=== PATIENT | male | born 1995 | race Hispanic/Latino ===

== ENCOUNTER 2018-10-15 14:34 | Inpatient (IN) | payer OTHER ==
[~2018-10-15 14:34] MED LIST: ISOVUE-370 76%-LOCM 1 ML ONE; Iopamidol 370 76% 50 ML VIAL FS ONE
[2018-10-15 14:52] LABS: #Basophils 0.1 thou/uL (0.0-0.2); #Eosinphils 0.1 thou/uL (0.0-0.7); #Lymphocytes 3.1 thou/uL (1.20-3.40); #Monocytes 0.7 thou/uL (0.11-0.59); #Neutrophils 5.1 thou/uL (1.40-6.50); %Basophils 0.6 % (0.0-1.0); %Eosinophils 0.9 % (0.0-10.0); %Lymphocytes 34.8 % (21.0-51.0); %Monocytes 7.4 % (0.0-10.0); %Neutrophils 56.3 % (42.0-75.0); Hemoglobin 14.2 g/dL (14.0-18.0); Mean Corpuscular HGB CONC 33.7 g/dL (32.0-36.0); Mean Corpuscular Hemoglobin 30.3 pg (27.0-31.0); Mean Corpuscular Volume 89.8 fL (78.0-98.0); Platelet Count 247 thou/uL (130-400); RBC Distribution Width 11.6 % (11.5-14.5)
--- NOTE | 2018-10-15 14:52 | RAD ---
CHEST ONE VIEW: History: Chest pain. FINDINGS: No comparison. Cardiac silhouette and pulmonary vasculature are unremarkable. Mediastinum is midline. Shallow inspir ation accentuates pulmonary markings. There is significant soft tissue gas along the left lateral [address] st wall. No free subdiaphragmatic gas is apparent. No evidence of pneumothorax on this portable uprig ht exam. IMPRESSION: Left chest wall gas. No evidence of pneumothorax. POS: [facility]
[2018-10-15] MEDS ORDERED: Morphine 4 MG/ML VIAL ONE ×2 (14:57→17:10)
[2018-10-15 14:59] LABS: INR-International Normal Ratio 0.9; PTT 23.5 SEC (22.9-36.1); Prothrombin Time 12.2 SEC (12.0-14.7)
[2018-10-15 15:10] LABS: Anion Gap 14 mmol/L (10-20); BUN (Urea Nitrogen) 15 mg/dL (8.9-20.6); Calc. Creatinine Clearance 0 mL/min (70-130); Calcium 9.5 mg/dL (7.8-10.44); Carbon Dioxide 23 mmol/L (22-29); Chloride 104 mmol/L (98-107); Estimated GFR-MDRD 89; Glucose 129 mg/dL (70-105); Potassium 3.7 mmol/L (3.5-5.1); Sodium 137 mmol/L (136-145)
[2018-10-15] MEDS ORDERED: Ondansetron PF 4 MG/2 ML Vial ONE ×2 (15:13→16:21)
--- NOTE | 2018-10-15 15:17 | CT ---
CT THORAX WITH CONTRAST CT ABDOMEN WITH CONTRAST CT PELVIS WITH CONTRAST: (trauma protocol) DATE: 10/15/18 TIME: 1447 hours HISTORY: 23-year-old male status post blunt trauma to chest and abdomen. Dr. Avila reported the finding of Grade V splenic laceration with active arterial bleeding, and pneumot horax, by telephone to Dr. Van of the emergency department at 1456 hours on 10/15/18. TECHNIQUE: IV administration of iodinated contrast media. No oral contrast media. Single phase scans of thorax, abdomen, and pelvis. Sagittal reconstructions of thoracic and lumbar spine. FINDINGS: Thoracic and lumbar spine: Vertebral body heights are maintained with no evidence of compression fracture. Thorax: There is an approximately 15% left pneumothorax. No pleural effusion. Lungs are clear. Rib fractures on the left: Minimally displaced lateral 7th. Mildly displaced lateral and posterolateral 8th and 9t h. Minimally displaced posterolateral 10th. Subcutaneous emphysema along left lateral and left accounting reconciliation clerk ior chest wall. Thoracic aorta is intact. No mediastinal hematoma or pericardial effusion. Abdomen: The spleen is shattered into multiple fragments. There are multiple foci of significant contrast extr avasation representing active arterial bleeding. Moderate to large perisplenic hematoma with blood tr aveling down the left paracolic gutter. There is also a small amount of free fluid around the right lobe of the liver, which also travels meche n the right paracolic gutter. Abdominal aorta, kidneys, pancreas, liver, and adrenals are intact. No retroperitoneal hematoma. No pneumoperitoneum. Pelvis: Moderate volume of free fluid representing blood within the pelvic cavity. No pelvic fracture or disl ocation. IMPRESSION: 1. Grade V splenic laceration, including active arterial hemorrhaging. 2. Moderate volume of hemoperitoneum. 3. Left acute, traumatic pneumothorax. 4. Multiple mildly displaced left acute, traumatic rib fractures. CODE CR. JN R POS: [facility]
[2018-10-15] MEDS ORDERED: Tranexamic Acid 1,000 MG/10 ML VIAL ONE (15:32)
--- NOTE | 2018-10-15 16:51 | HP ---
HISTORY OF PRESENT ILLNESS: This is a 23-year-old gentleman, brought in by EMS , who sustained blunt trauma to his left chest. EMS reports that the patient was standing approximately 20 feet away when workers were attempting to remove a truck that was stuck. They were using a large piece of pipe, which ended up breaking, becoming dislodged under high pressure, flying in the air, and hitting the patient in the left chest. The patient with no loss of consciousness. EMS reported the patient had difficulty taking a deep breath and decreased breath sounds on the left side. The patient was initially a level I trauma activation due to possible flail chest, but then was downgraded to a level II. The patient was worked up in the emergency room. A FAST exam was performed with possible spleen injury. CT chest, abdomen, and pelvis shows a small left pneumo, grade 4 spleen injury and left multiple fractured ribs. PAST MEDICAL HISTORY: The patient denies. PAST SURGICAL HISTORY: The patient denies. MEDICATIONS: The patient denies. ALLERGIES: THE PATIENT DENIES. PHYSICAL EXAMINATION: VITAL SIGNS: Blood pressure 123/85, pulse 117, respirations 21, temperature 98.2, respirations 100% on a non-rebreather. GENERAL: The patient is awake, alert. Nausea and vomiting from the recent morphine. Tachycardic with vomiting. HEENT: Head is normocephalic and atraumatic. Trachea is midline. Pupils are equal and reactive at 3 mm bilateral. NECK: Without tenderness. Full range of motion. RESPIRATORY: Shallow respirations and slightly tachypneic. Slightly diminished breath sounds to the left. CARDIOVASCULAR: Tenderness to the left lateral chest, no crepitus. Abrasion noted to the left chest wall. Regular rate, tachycardic. Heart sounds are normal. S1 and S2 noted. No murmurs. Pedal pulses normal, 2+. ABDOMEN: Tender in the left upper quadrant, nondistended. Active bowel sounds. No blood at the meatus. Normal genitalia. BACK: Normal inspection, no tenderness, no step-off. EXTREMITIES: Normal range of motion and strength to all extremities. Pulses 2+ . They were no obvious injuries or deformities to the extremities. NEUROLOGIC: The patient is alert, oriented to person, place, time, and event. GCS is 15. Cranial nerves intact, no focal deficits, no sensory deficits. SKIN: Again noted abrasion to the left lateral chest. Skin, warm and dry. LABORATORY DATA: WBC 9.0, RBC 4.70, hemoglobin 14.2, hematocrit 42.2, platelets 247. PT 12.2, INR 0.9, APTT 23.5. Sodium 137, potassium 3.7, chloride 104, carbon dioxide 23, anion gap 14, BUN 15, creatinine 1.03, estimated GFR 89, glucose 129 , calcium 9.5. DIAGNOSTIC DATA: Chest x-ray, left chest wall gas. CT abdomen, pelvis, and chest grade 4 spleen laceration including active arterial hemorrhaging, moderate volume of hemoperitoneum, left acute traumatic small pneumothorax, multiple mildly displaced left acute traumatic rib fractures. PLAN: Cardiothoracic Surgery consulted, planned for Dr. Alfaro and Jude to go to the engineering laboratory technician for an angioembolization if not able to stop the bleeding will take to the OR. We will admit patient to the CCU for close monitoring and serial blood draws. We will continue to monitor of the left small pneumothorax, repeat a chest x-ray in the morning. Repeat labs in the morning. We will activate the MTP protocol if needed. Manage pain with IV meds and pt may have sips of water only tonight. This patient was examined with Dr. Roque. Job ID: [id number] [facility]
[2018-10-15] MEDS ORDERED: Dextrose 50% Abboject 50 ML SYRINGE SLOW IVP PRN (17:44)
[2018-10-15] MEDS ORDERED: Rib Fracture Protocol IV SCH (17:44)
[2018-10-15] MEDS ORDERED: Dextrose 5% in Water 1,000 ML IV PRN (17:44)
[2018-10-15] MEDS ORDERED: hydrALAZINE 20 MG/ML VIAL SLOW IVP PRN (17:44)
[2018-10-15] MEDS ORDERED: Morphine 4 MG/ML VIAL SLOW IVP PRN ×2 (17:44)
[2018-10-15] MEDS ORDERED: Fentanyl 100 MCG/2 ML VIAL ONE (18:09)
[2018-10-15] MEDS ORDERED: Fentanyl 100 MCG/2 ML VIAL SLOW IVP PRN (18:11)
[2018-10-15 18:51] VITALS: BMI 28.0
[2018-10-15 18:58] LABS: Hemoglobin 11.6 g/dL (14.0-18.0)
[2018-10-15] MEDS: Ondansetron PF 4 MG/2 ML Vial IVP PRN (19:02)
[2018-10-15] MEDS ORDERED: HYDROmorphone 10 mg/100 ml CADD IVPB PRN (19:19)
[2018-10-15] MEDS ORDERED: diphenhydrAMINE 50 MG/ML VIAL IVP PRN (19:19)
[2018-10-15] MEDS ORDERED: Promethazine HCl 25 MG/ML VIAL IM PRN (19:19)
[2018-10-15] MEDS ORDERED: diphenhydrAMINE 50 MG/ML VIAL IM PRN (19:19)
[2018-10-15] MEDS ORDERED: Naloxone HCl 0.4 mg/ml Vial IV PRN (19:19)
[2018-10-15] MEDS ORDERED: diphenhydrAMINE 25 MG CAP PO PRN (19:19)
[2018-10-15] MEDS ORDERED: Communication Order-Pharmacy FS SCH (19:30)
--- NOTE | 2018-10-15 20:21 | PRG ---
DATE OF SERVICE: 10/15/2018 SUBJECTIVE: I am seeing Mr. Morocho 23-year-old man who suffered blunt chest and abdominal trauma earlier today sustaining multiple rib fractures as well as a grade 4 splenic laceration with active bleeding. The patient is status post angioembolization. He remains stable in intensive care unit. Pain control is improving. He is awake and alert. His pain currently is reported at 8/10. The pain is mostly chest wall. The patient denies any abdominal pain, nausea, or vomiting. OBJECTIVE: VITAL SIGNS: Currently include blood pressure 134/81, pulse is 116, respiratory rate is 25, temperature is 98.7 degrees Fahrenheit, and oxygen saturation is 95% on room air. HEENT: Pupils are equal, round, reactive to light and accommodation. HEART: Reveals regular rate with sinus tachycardia. No murmurs or gallops auscultated. LUNGS: Clear to auscultation bilaterally. ABDOMEN: Soft, moderately distended, but nontender to palpation. Clearly, the patient has no peritoneal signs on examination. NEUROLOGIC: Reveals no focal deficits present. LABORATORY DATA: Hemoglobin and hematocrit noted at 11.6 and 34.3. This is post angioembolization. Urinary output is adequate. IMPRESSION: 1. Status post blunt chest and abdominal trauma. 2. Grade 4 splenic laceration, status post angioembolization. 3. Acute blood loss anemia. 4. Multiple rib fractures. PLAN: 1. We will initiate Dilaudid AIRLINE PILOT for better pain control. 2. We will continue with nonpharmacological VTE prophylaxis until the patient achieves adequate hemostasis. 3. We will continue with bowel and bed rest until active bleeding has been excluded. The above findings and plan discussed with the patient, who indicates understanding of information given. Job ID: [id number]
[2018-10-15] MEDS: Famotidine/PF 20 mg/2ml Vial SLOW IVP SCH (20:44)
[2018-10-15] MEDS: Senokot S 8.6-50 MG TAB PO SCH (20:47)
[2018-10-15] MEDS: Sodium Chloride 0.9% 1,000 ML IV SCH ×2 (21:50→23:28)
[2018-10-15 21:56] LABS: Hemoglobin 11.8 g/dL (14.0-18.0)
[2018-10-15] MEDS ORDERED: Ketorolac Tromethamine 30 MG/ML VIAL IVP SCH (23:59)
[2018-10-15] MEDS ORDERED: Acetaminophen 650 MG Suppository PR SCH (23:59)
[2018-10-16] MEDS: Acetaminophen 1,000 MG in Premix Bag 1 BAG IVPB SCH ×5 (00:22→23:26)
[2018-10-16] MEDS: Ondansetron PF 4 MG/2 ML Vial IVP PRN ×2 (04:23→09:27)
[2018-10-16 04:43] LABS: #Monocytes 1.1 thou/uL (0.11-0.59); #Neutrophils 13.7 thou/uL (1.40-6.50); %Basophils 0.1 % (0.0-1.0); %Lymphocytes 6.4 % (21.0-51.0); %Monocytes 7.2 % (0.0-10.0); %Neutrophils 86.3 % (42.0-75.0); Hemoglobin 10.4 g/dL (14.0-18.0); Mean Corpuscular HGB CONC 34.1 g/dL (32.0-36.0); Mean Corpuscular Hemoglobin 31.1 pg (27.0-31.0); Mean Corpuscular Volume 91.1 fL (78.0-98.0); Mean Platelet Volume 8.1 fL (7.4-10.4); Platelet Count 191 thou/uL (130-400); RBC Distribution Width 11.8 % (11.5-14.5); Red Blood Cell (RBC) Count 3.35 mill/uL (4.70-6.10); White Blood Cell (WBC) Count 15.8 thou/uL (4.8-10.8)
[2018-10-16 05:06] LABS: ALT (SGPT) 94 U/L (8-55); AST (SGOT) 59 U/L (5-34); Albumin 3.6 g/dL (3.5-5.0); Alkaline Phosphatase 51 U/L (40-150); Anion Gap 14 mmol/L (10-20); BUN (Urea Nitrogen) 13 mg/dL (8.9-20.6); Calc. Creatinine Clearance 129 mL/min (70-130); Calcium 8.3 mg/dL (7.8-10.44); Carbon Dioxide 24 mmol/L (22-29); Chloride 103 mmol/L (98-107); Estimated GFR-MDRD Greater than 90; Globulin 2.3 g/dL (2.4-3.5); Glucose 125 mg/dL (70-105); Magnesium 1.5 mg/dL (1.6-2.6); Potassium 4.2 mmol/L (3.5-5.1); Protein, Total 5.9 g/dL (6.0-8.3); Sodium 137 mmol/L (136-145)
[2018-10-16] MEDS ORDERED: Magnesium Sulfate 2 GM in Sodium Chloride 0.9% 100 ML IVPB SCH (07:45)
[2018-10-16] MEDS: Polyethylene Glycol 3350 17 GM Packet PO SCH (07:54)
[2018-10-16] MEDS: Senokot S 8.6-50 MG TAB PO SCH ×2 (07:55→20:45)
[2018-10-16] MEDS: Famotidine/PF 20 mg/2ml Vial SLOW IVP SCH ×2 (08:00→20:45)
[2018-10-16] MEDS: Sodium Chloride 0.9% 1,000 ML IV SCH ×3 (08:08→19:39)
[2018-10-16] MEDS ORDERED: Magnesium 2 GM/50 ML 2 GM in Premix Bag 1 BAG IVPB SCH (08:15)
--- NOTE | 2018-10-16 08:17 | OP ---
DATE OF PROCEDURE: 10/15/2018 PREOPERATIVE DIAGNOSIS: Ruptured spleen. POSTOPERATIVE DIAGNOSIS: Ruptured spleen. PROCEDURE PERFORMED: Splenic arteriograms with coil embolization of the lower pole splenic arteries using 4 x 8 interlock coils x2 and 3 x 6 interlock coils x2. FLUOROSCOPY: 10.1 minutes. CONTRAST: 20 mL. DESCRIPTION OF PROCEDURE: After prepping and draping, 1% lidocaine was used to infiltrate the right groin following which, ultrasound-guided puncture of the femoral artery was carried out. Wire advanced. A 5-Japanese dilator and sheath were placed. A [employer] wire was used to advance an angled glide catheter up to the abdominal aorta and initially the superior mesenteric artery was cannulated and then withdrawn from there and splenic artery cannulated with the wire preferentially going into the hepatic artery. This wire was then exchanged for an angled Glidewire which then preferentially went into the splenic artery. Over this wire, the angled glide catheter was advanced into the mid splenic artery. A direct C-arm catheter was then advanced through this glide catheter and with a long Luge wire was directed into the lower pole splenic vessels which consisted of a bifurcation. The upper bifurcation was coiled with the 3 x 6 coils and then occluded and then the lower pole was cannulated and coiled with a 4 x 8 coils. Following completion angiography, there was no flow through these branches and no further evidence of bleeding. FINDINGS: The patient had injury to one of the branches to the lower pole splenic artery with a cutoff sign. No obvious extravasation was identified during the procedure. Job ID: [id number]
--- NOTE | 2018-10-16 08:21 | ER ---
DATE OF SERVICE: 10/15/2018 ADDENDUM: Please refer to the patient's electronic medical record for further details of his visit. In summary, the patient presented via EMS with report of traumatic chest wall injury, requiring intubation. Because of this, a level 1 trauma activation was initiated. However, upon the time of the patient's arrival, it was warranted he had not been intubated, was not significantly hypoxic, and the patient was quickly downgraded. Primary assessment revealed an intact airway, bilateral breath sounds, and peripheral pulses present in all extremities. The patient was awake, alert, and talking. He was aware of his surroundings and oriented normally. GCS is 15. Secondary survey revealed tenderness over the left chest wall with [id number] respiratory distress. His O2 saturation was not truly hypoxic, though on the low side of normal, in the low 90s. He was given supplemental oxygen via nasal cannula with some improvement to the mid 90s. His heart rate was initially normal, though it was noted to increase throughout the duration of his visit. Initial bedside ultrasound was positive for intra-abdominal fluid. Because he was hemodynamically stable, imaging was obtained, which revealed a high-grade splenic injury with active arterial extravasation consistent with ongoing intra-abdominal hemorrhage. Because of this, with the patient's increasing heart rate, massive transfusion protocol was initiated, though the patient does not require blood product administration while in the emergency department. He also was noted to have a small left-sided pneumothorax, which did not require chest tube placement. This would obviously require monitoring while in the hospital. He was given tranexamic acid due to concern for his ongoing bleeding. The trauma team was at the bedside on arrival, and associated with the management of this patient throughout his stay. He was transferred to the mill labor supervisor for embolization versus operative repair of his splenic injury. At that time, the patient remained stable, but guarded condition. Job ID: [id number]
--- NOTE | 2018-10-16 08:25 | RAD ---
SINGLE VIEW OF THE CHEST: COMPARISON: 10/15/2018. HISTORY: Small left pneumothorax. FINDINGS: A single view of the chest shows a normal-size cardiomediastinal silhouette. There is no evidence of consolidation, mass, pneumothorax, or pleural effusion. There is improvement in the air along the l eft chest wall. IMPRESSION: No evidence of acute cardiopulmonary disease. POS: [facility]
[2018-10-16] MEDS ORDERED: Fentanyl 100 MCG/2 ML VIAL SLOW IVP PRN ×2 (09:06)
[2018-10-16] MEDS: Scopolamine 1.5 mg/72 hour Patch TOP SCH (09:26)
[2018-10-16] MEDS ORDERED: Metoclopramide HCl 10 MG/2 ML VIAL IVP SCH (10:15)
[2018-10-16] MEDS ORDERED: fentaNYL Citrate/PF 2,000 MCG in Sodium Chloride 0.9% 60 ML IV PRN (10:21)
[2018-10-16] MEDS ORDERED: diphenhydrAMINE 50 MG/ML VIAL IVP PRN (10:21)
[2018-10-16] MEDS ORDERED: diphenhydrAMINE 50 MG/ML VIAL IM PRN (10:21)
[2018-10-16] MEDS ORDERED: diphenhydrAMINE 25 MG CAP PO PRN (10:21)
[2018-10-16] MEDS ORDERED: Communication Order-Pharmacy FS SCH (10:30)
--- NOTE | 2018-10-16 12:36 | PQF ---
CLINICAL DOCUMENTATION IMPROVEMENT CLARIFICATION FORM: ICD-10 Updated PLEASE DO AN ADDENDUM TO THE PROGRESS NOTE WITH ANY DOCUMENTATION UPDATES OR ADDITIONS AND CARRY THROUGH TO DC SUMMARY. THANK YOU. DATE: 10/16/18 ATTN: DR. GRIER Please exercise your independent, professional judgment in responding to the clarification form. Clinical indicators are provided on the bottom of this form for your review Please check appropriate box(s) to clarify if the following diagnosis has been ruled in or ruled out: "FLAIL CHEST" [ ] Ruled in diagnosis [ ] Continue to treat [ ] Resolved [ X ] Ruled out diagnosis [ ] Cannot rule out diagnosis [ ] Other diagnosis [ ] Unable to determine In addition, please specify: Present on Admission (POA): [ ] Yes [X ] No [ ] Unable to determine This was a miscommunication from the EMS report. Pt never had a flail chest but that was the only reason a level one was activated. When the patient arrived and there was no flair chest the ER downgraded to level 2. For continuity of documentation, please document condition throughout progress notes and discharge summary. Thank You. CLINICAL INDICATORS - SIGNS / SYMPTOMS / LABS H&P: "POSSIBLE FLAIL CHEST " RR 32, SHALLOW HR 117 H&P: "THE PATIENT WAS INITIALLY A LEVEL I TRAUMA ACTIVATION DUE TO POSSIBLE LEFT FLAIL CHEST, BUT THEN WAS DOWNGRADED TO A LEVEL II." RISKS: BLUNT TRAUMA TO CHEST LEFT PNEUMOTHORAX RUPTURED SPLEEN TREATMENT: SUPPLEMENTAL OXYGEN CRITICAL CARE MONITORING CHEST XRAY TRAUMA ACTIVATION CV SURGERY CONSULT WITH COIL EMBOLIZATION OF SPLENIC ARTERIES SAP Mortgage Operations Manager Crystal Reports Winform Viewer (This form is maintained as a part of the permanent medical record) 2014 [employer]. All Rights Reserved CHUCK [email or web address] Office: [phone] [facility]ITAL[facility]
[2018-10-16] MEDS: Metoclopramide HCl 10 MG/2 ML VIAL IVP SCH ×2 (13:54→18:29)
[2018-10-16 16:28] LABS: Hemoglobin 9.4 g/dL (14.0-18.0)
[2018-10-17] MEDS: Metoclopramide HCl 10 MG/2 ML VIAL IVP SCH ×4 (01:43→18:45)
[2018-10-17 04:59] LABS: Hemoglobin 9.2 g/dL (14.0-18.0)
[2018-10-17] MEDS ORDERED: Acetaminophen 650 MG Suppository PR SCH (06:00)
[2018-10-17] MEDS: Acetaminophen 325 MG TAB PO SCH ×3 (06:19→17:39)
[2018-10-17] MEDS: Polyethylene Glycol 3350 17 GM Packet PO SCH (08:22)
[2018-10-17] MEDS: Senokot S 8.6-50 MG TAB PO SCH ×3 (08:22→23:30)
[2018-10-17] MEDS: Famotidine/PF 20 mg/2ml Vial SLOW IVP SCH ×2 (08:24→21:28)
[2018-10-17] MEDS: Sodium Chloride 0.9% 1,000 ML IV SCH (08:34)
--- NOTE | 2018-10-17 08:45 | RAD ---
PORTABLE CHEST: DATE: 10/17/2018. PROVIDED CLINICAL HISTORY: Pneumothorax. FINDINGS: Comparison is made with a study dated 10/16/2018. The lungs are hypoinflated. Development of left bas ilar parenchymal opacity. A tiny left pneumothorax may be present. The right lung appears clear. S oft tissue gas is seen involving the left lower chest wall. IMPRESSION: 1. Development of left basilar parenchymal opacity, which could reflect atelectasis or infiltrate. 2. Tiny left pneumothorax is suspected. POS: [facility]
[2018-10-17 09:48] LABS: Anion Gap 11 mmol/L (10-20); BUN (Urea Nitrogen) 7 mg/dL (8.9-20.6); Calc. Creatinine Clearance 153 mL/min (70-130); Calcium 8.9 mg/dL (7.8-10.44); Carbon Dioxide 24 mmol/L (22-29); Chloride 103 mmol/L (98-107); Estimated GFR-MDRD Greater than 90; Glucose 112 mg/dL (70-105); Magnesium 1.7 mg/dL (1.6-2.6); Phosphorus 2.4 mg/dL (2.3-4.7); Sodium 134 mmol/L (136-145)
[2018-10-17] MEDS ORDERED: Magnesium Sulfate 3 GM in Sodium Chloride 0.9% 100 ML IVPB SCH (15:00)
[2018-10-17] MEDS: Levalbuterol HCl 0.63 MG/3 ML NEB NEB SCH ×2 (15:05→22:01)
--- NOTE | 2018-10-17 15:23 | PRG ---
DATE OF SERVICE: 10/17/2018 SUBJECTIVE: The patient was seen this morning, sitting up in bed. The patient remained in the ICU overnight with trending hemoglobin and close vital signs monitoring. He is status post blunt trauma to the left chest with grade 4 splenic injury, left-sided rib fractures and a small left-sided pneumothorax. He had no acute overnight events. However, his hemoglobin did trend down to 9.2 this morning from 9.4 from 10.4. The patient continues to be mildly tachycardic, but denies any other additional symptoms. He is urinating on his own and denies nausea, vomiting, and diarrhea. Pain is well controlled. PHYSICAL EXAMINATION: VITAL SIGNS: Temperature 98.7, pulse 124, blood pressure 135/69, respirations 21, and oxygen saturation 100% on room air. GENERAL: Alert and well-appearing young male, sitting up in bed. NEURO: GCS is 15. Alert and oriented x3. Gross motor and sensation intact. Pupils equal, round, and reactive to light. PULMONARY: No signs of acute distress. Equal chest rise and fall. Lung molina clear bilaterally. Left-sided chest wall tenderness with no crepitus. HEART: Tachycardic, but regular rhythm. No murmurs, gallops, or rubs. GI: Abdomen is soft, appropriately tender to palpation. Nondistended with positive bowel sounds. EXTREMITIES: Motor and sensation intact. 2+ pulses in all extremities. No swelling noted. LABORATORY FINDINGS: Hemoglobin 9.2 and hematocrit 26.5. Sodium 134, potassium 4.0, chloride 103, carbon dioxide 29, BUN 7, creatinine 0.76, glucose 112, phos 2.4, and magnesium 1.7. DIAGNOSTIC FINDINGS: Chest x-ray completed this morning demonstrates development of left basilar parenchymal opacity which could reflect atelectasis or infiltrate. Tiny left pneumothorax is suspected. ASSESSMENT: 1. Status post blunt trauma to left chest. 2. Left small pneumothorax. 3. Left 7th through 10th rib fractures. 4. Grade 4 splenic injury, active extravasation. 5. Acute traumatic pain. PLAN: The patient will be transferred from the ICU to regular nursing floor. We will discontinue scheduled DuoNebs and start Xopenex scheduled. Can be advanced to a regular diet. Normal saline at 75 an hour will be discontinued as well. Phosphorus and magnesium will be replaced today. We will continue to trend hemoglobins to this afternoon and if stable, the patient will receive daily labs. We will also start a bowel regimen with Colace, senna, and MiraLAX today. The patient was seen and examined by Dr. Guevara this morning during rounds. Job ID: [id number]
[2018-10-17 16:35] LABS: Hemoglobin 8.6 g/dL (14.0-18.0)
[2018-10-18] MEDS: Acetaminophen 325 MG TAB PO SCH ×4 (00:26→18:29)
[2018-10-18] MEDS: Metoclopramide HCl 10 MG/2 ML VIAL IVP SCH ×4 (00:26→18:29)
[2018-10-18 03:51] LABS: Lactic Acid 0.9 mmol/L (0.5-2.2)
[2018-10-18 03:56] LABS: Anion Gap 12 mmol/L (10-20); BUN (Urea Nitrogen) 8 mg/dL (8.9-20.6); Calc. Creatinine Clearance 141 mL/min (70-130); Calcium 8.5 mg/dL (7.8-10.44); Carbon Dioxide 27 mmol/L (22-29); Chloride 102 mmol/L (98-107); Estimated GFR-MDRD Greater than 90; Glucose 116 mg/dL (70-105); Magnesium 1.9 mg/dL (1.6-2.6); Phosphorus 2.9 mg/dL (2.3-4.7); Potassium 3.7 mmol/L (3.5-5.1); Sodium 137 mmol/L (136-145)
[2018-10-18 04:06] LABS: #Lymphocytes 1.2 thou/uL (1.20-3.40); #Monocytes 1.1 thou/uL (0.11-0.59); #Neutrophils 11.1 thou/uL (1.40-6.50); %Basophils 0.1 % (0.0-1.0); %Eosinophils 0.1 % (0.0-10.0); %Monocytes 8.2 % (0.0-10.0); %Neutrophils 82.6 % (42.0-75.0); Hemoglobin 8.6 g/dL (14.0-18.0); Mean Corpuscular Hemoglobin 32.3 pg (27.0-31.0); Mean Corpuscular Volume 92.5 fL (78.0-98.0); Mean Platelet Volume 7.3 fL (7.4-10.4); Platelet Count 116 thou/uL (130-400); RBC Distribution Width 11.7 % (11.5-14.5); Red Blood Cell (RBC) Count 2.65 mill/uL (4.70-6.10); White Blood Cell (WBC) Count 13.5 thou/uL (4.8-10.8)
[2018-10-18] MEDS: Levalbuterol HCl 0.63 MG/3 ML NEB NEB SCH ×3 (06:38→22:09)
[2018-10-18] MEDS: Senokot S 8.6-50 MG TAB PO SCH ×3 (07:15→19:45)
[2018-10-18] MEDS: Polyethylene Glycol 3350 17 GM Packet PO SCH (08:19)
[2018-10-18] MEDS: Famotidine/PF 20 mg/2ml Vial SLOW IVP SCH ×2 (08:20→19:45)
[2018-10-18] MEDS: traMADol HCl 50 MG TAB PO PRN ×3 (10:45→23:12)
[2018-10-18] MEDS ORDERED: Potassium Phosphate 15 MMOL in Sodium Chloride 0.9% 250 ML 250 ML IVPB SCH (11:00)
--- NOTE | 2018-10-18 15:15 | PRG ---
DATE OF SERVICE: 10/18/2018 SUBJECTIVE: Mr. Morocho is a 23-year-old man, who is post injury day #3, status post blunt chest and abdominal trauma. The patient sustained multiple traumatic injuries including left rib fractures as well as grade 4 splenic laceration with intraperitoneal hemorrhage. He is also 3 days status post angioembolization. His hemoglobin has finally stabilized at 8.6 this morning. The patient, however, is complaining of fatigue. He admits to passing some flatus, but has not had any bowel movement. The urinary output has been adequate. OBJECTIVE: VITAL SIGNS: This morning includes blood pressure 119/74, pulse is 116, temperature is 98.8 degrees Fahrenheit, and oxygen saturation is 99% on 4 L by nasal cannula oxygen. HEENT: Reveals pupils are equal, round, and reactive to light and accommodation. NECK: He has no jugular venous distention noted. HEART: Reveals regular rate with sinus tachycardia. No murmurs or gallops auscultated. LUNGS: Reveal bibasilar rhonchi. Breathing, regular and unlabored. ABDOMEN: Soft, moderately distended, but no significant tenderness to palpation. Clearly, the patient has no rebound tenderness present. Bowel sounds in all 4 quadrants appear normoactive. EXTREMITIES: Reveal 2+ radial and pedal pulses bilaterally. No ankle edema is present. NEUROLOGIC: Reveals no focal deficits present. LABORATORY FINDINGS: Today includes a CBC with 13,500 white blood cells, hemoglobin and hematocrit are noted at 8.6 and 24.5 respectively, and platelet count is 116,000. Metabolic profile; sodium 137, potassium is 3.7, chloride is 102, bicarb is 27, BUN 8, creatinine is 0.82, glucose is 116, magnesium 1.9, and phosphorus is 2.9. IMPRESSION: 1. Post injury day #3, status post blunt chest and abdominal trauma. 2. Grade 4 splenic laceration 3 days, status post angioembolization. 3. Acute blood loss anemia secondary to grade 4 splenic laceration. 4. Acute hypomagnesemia. 5. Acute hypokalemia. 6. Acute hypophosphatemia. PLAN: 1. Correct abnormal electrolytes. 2. The patient will be transfused with 1 unit of packed red blood cells for symptomatic acute blood loss anemia. 3. We would discontinue fentanyl ASSISTANT PURCHASING MANAGER and optimize oral pain management. 4. I encouraged the patient to ambulate frequently to avoid complications of venous thromboembolism. 5. Above findings and plan discussed with the patient, who indicates understanding of the information given. I have answered his questions. Job ID: [id number] [facility]
[2018-10-19] MEDS: Acetaminophen 325 MG TAB PO SCH ×4 (00:10→19:33)
[2018-10-19] MEDS: Metoclopramide HCl 10 MG/2 ML VIAL IVP SCH ×4 (00:11→19:35)
[2018-10-19] MEDS: Levalbuterol HCl 0.63 MG/3 ML NEB NEB SCH ×3 (06:44→22:10)
[2018-10-19] MEDS: Scopolamine 1.5 mg/72 hour Patch TOP SCH (08:24)
[2018-10-19] MEDS: Polyethylene Glycol 3350 17 GM Packet PO SCH (08:26)
[2018-10-19] MEDS: Senokot S 8.6-50 MG TAB PO SCH ×2 (08:27→20:35)
[2018-10-19] MEDS: Famotidine/PF 20 mg/2ml Vial SLOW IVP SCH ×2 (08:27→20:35)
[2018-10-19] MEDS: traMADol HCl 50 MG TAB PO PRN ×2 (08:43→19:34)
[2018-10-19 08:53] LABS: Hemoglobin 10.5 g/dL (14.0-18.0); Mean Corpuscular HGB CONC 33.5 g/dL (32.0-36.0); Mean Corpuscular Hemoglobin 30.9 pg (27.0-31.0); Mean Corpuscular Volume 92.1 fL (78.0-98.0); Mean Platelet Volume 7.4 fL (7.4-10.4); Platelet Count 186 thou/uL (130-400); RBC Distribution Width 11.9 % (11.5-14.5); White Blood Cell (WBC) Count 12.8 thou/uL (4.8-10.8)
[2018-10-19 09:01] LABS: Anion Gap 13 mmol/L (10-20); BUN (Urea Nitrogen) 9 mg/dL (8.9-20.6); Calc. Creatinine Clearance 161 mL/min (70-130); Calcium 9.1 mg/dL (7.8-10.44); Carbon Dioxide 27 mmol/L (22-29); Chloride 100 mmol/L (98-107); Estimated GFR-MDRD Greater than 90; Glucose 101 mg/dL (70-105); Magnesium 1.8 mg/dL (1.6-2.6); Phosphorus 3.1 mg/dL (2.3-4.7); Potassium 3.4 mmol/L (3.5-5.1); Sodium 137 mmol/L (136-145)
[2018-10-19 10:00] LABS: Band 2 % (5-11); Lymphocytes 6 % (21-51); MDiff Complete? YES; Monocytes 6 % (0-10); Neutrophil 78 % (42-75); Reactive Lymphocytes 8 % (0-10)
[2018-10-19] MEDS ORDERED: Meningococcal Vaccine 0.5ML VIAL (MENACTRA) IM ONE (12:12)
[2018-10-19] MEDS ORDERED: Acthib 0.5 ML VIAL IM ONE (12:12)
[2018-10-19] MEDS ORDERED: Magnesium 2 GM/50 ML 2 GM in Premix Bag 1 BAG IVPB SCH (12:15)
[2018-10-19] MEDS ORDERED: Potassium Chloride 20 MEQ in Premix Bag 1 BAG IVPB SCH ×2 (12:15→12:45)
[2018-10-19] MEDS ORDERED: Potassium Phosphate 15 MMOL in Sodium Chloride 0.9% 250 ML 250 ML IVPB SCH (12:15)
[2018-10-19] MEDS: Ferrous Sulfate 325 MG TAB PO SCH (19:33)
--- NOTE | 2018-10-19 20:28 | PRG ---
DATE OF SERVICE: 10/19/2018 SUBJECTIVE: Mr. Morocho is a 23-year-old man, who is postinjury day #4, status post blunt chest and abdominal trauma. The patient sustained grade 4 splenic laceration, of which he is postprocedure day #4, status post angio embolization. Today, he reports having bowel movement. He denies any nausea or vomiting. He is tolerating a general diet. He ambulates with minimal difficulty. He reports adequate pain control. PHYSICAL EXAMINATION: VITAL SIGNS: Today include blood pressure is 127/74, pulse is 118, temperature is 98.8 degrees Fahrenheit, and oxygen saturation 92% on room air. HEENT: Pupils equal and reactive to light and accommodation. HEART: Reveals regular rate with sinus tachycardia. No murmurs or gallops auscultated. LUNGS: Clear to auscultation bilaterally. Breathing, regular and nonlabored. ABDOMEN: Soft, moderately distended, but nontender to palpation. Clearly, he has no peritoneal signs on examination. LABORATORY FINDINGS: Today include CBC with 12,800 white blood cells, hemoglobin and hematocrit 10.5 and 31.3 respectively, and platelet count is 186,000. Metabolic profile; sodium 137, potassium 3.4, chloride is 100, bicarb is 27, BUN 9, creatinine 0.72, and glucose is 101. Magnesium 1.8. Phosphorus 3.1. Chest X-ray shows a large left pleural effusion with atelectasis IMPRESSION: 1. Postinjury #4 status post blunt chest trauma. 2. Postoperative day #4 status post angio embolization of grade 4 splenic laceration. 3. Stable acute blood loss anemia. 4. Acute hypokalemia. 5. Acute hypomagnesemia. 6. Acute hypoxemia with tachycardia secondary to large left pleural effusion with pulmonary atelectasis . PLAN: 1. Correct abnormal electrolytes. 2. Continue with pulmonary toileting. 3. Continue with iron replacement therapy and vitamin C. 4. Place left chest tube 5. Given this high-grade splenic laceration, we will give the patient the necessary postsplenectomy vaccinations. Above findings and plan discussed with the patient, who indicates understanding and information given. I have answered his questions. Job ID: [id number] [facility]
[2018-10-19] MEDS ORDERED: Lidocaine 2% Jelly 5 ML TUBE ONE (20:39)
[2018-10-19] MEDS ORDERED: Lidocaine 1% (PF) 30 ML VIAL ONE (20:40)
[2018-10-19] MEDS ORDERED: CEFAZOLIN SLOW IVP SCH (21:00)
[2018-10-19] MEDS ORDERED: SODIUM CHLORIDE 0.9% SLOW IVP SCH (21:00)
[2018-10-19] MEDS ORDERED: Ketorolac Tromethamine 30 MG/ML VIAL ONE (21:30)
[2018-10-19] MEDS ORDERED: Ketorolac Tromethamine 30 MG/ML VIAL IVP SCH (21:45)
[2018-10-19] MEDS ORDERED: Fentanyl 100 MCG/2 ML VIAL SLOW IVP PRN (21:48)
--- NOTE | 2018-10-19 22:18 | RAD ---
CHEST ONE VIEW: History: Tachycardia, hypoxia. Comparison: 10-17-18 FINDINGS: There is marked increased in left layering pleural effusion. Subcutaneous emphysema has improved. Mul tiple left sided contiguous rib fractures are similar. Right lung is relatively clear. IMPRESSION: Significant interval size increase layering left pleural effusion. POS: [facility]
[2018-10-20] MEDS: Metoclopramide HCl 10 MG TAB PO SCH ×4 (00:27→17:47)
[2018-10-20] MEDS: Acetaminophen 325 MG TAB PO SCH ×4 (00:27→17:47)
[2018-10-20] MEDS: Ketorolac Tromethamine 30 MG/ML VIAL IVP SCH ×4 (03:38→20:32)
[2018-10-20] MEDS: Levalbuterol HCl 0.63 MG/3 ML NEB NEB SCH ×3 (06:39→23:45)
[2018-10-20 06:40] LABS: Band 2 % (5-11); Hemoglobin 10.8 g/dL (14.0-18.0); Hypochromia SLIGHT = 6-15 cells (100X) (0-5/hpf); Lymphocytes 5 % (21-51); MDiff Complete? YES; Mean Corpuscular HGB CONC 33.5 g/dL (32.0-36.0); Mean Corpuscular Hemoglobin 30.7 pg (27.0-31.0); Mean Corpuscular Volume 91.8 fL (78.0-98.0); Monocytes 5 % (0-10); Neutrophil 88 % (42-75); Platelet Count 251 thou/uL (130-400); Platelet Morphology Comment Appears Adequate; RBC Distribution Width 11.9 % (11.5-14.5); Red Blood Cell (RBC) Count 3.53 mill/uL (4.70-6.10); White Blood Cell (WBC) Count 11.8 thou/uL (4.8-10.8)
[2018-10-20 06:48] LABS: Anion Gap 12 mmol/L (10-20); BUN (Urea Nitrogen) 13 mg/dL (8.9-20.6); Calc. Creatinine Clearance 136 mL/min (70-130); Calcium 9.4 mg/dL (7.8-10.44); Carbon Dioxide 28 mmol/L (22-29); Chloride 101 mmol/L (98-107); Estimated GFR-MDRD Greater than 90; Glucose 99 mg/dL (70-105); Magnesium 2.4 mg/dL (1.6-2.6); Phosphorus 4.5 mg/dL (2.3-4.7); Potassium 4.3 mmol/L (3.5-5.1); Sodium 137 mmol/L (136-145)
[2018-10-20] MEDS: Famotidine 20 MG TAB PO SCH ×2 (08:34→20:31)
[2018-10-20] MEDS: Ascorbic Acid 500 mg Chewable Tablet PO SCH (08:34)
[2018-10-20] MEDS: Polyethylene Glycol 3350 17 GM Packet PO SCH (08:35)
[2018-10-20] MEDS: Ferrous Sulfate 325 MG TAB PO SCH ×2 (08:35→16:24)
[2018-10-20] MEDS: Senokot S 8.6-50 MG TAB PO SCH ×2 (08:35→20:31)
--- NOTE | 2018-10-20 08:40 | RAD ---
SINGLE VIEW OF THE CHEST: COMPARISON: 10/19/2018. HISTORY: Left pleural effusion. FINDINGS: A single view of the chest shows a normal-size cardiomediastinal silhouette. There has been interval placement of a left chest tube with decreased size of left pleural effusion. A small left pleural e ffusion remains. No pneumothorax is seen. IMPRESSION: Status post chest tube placement with decreased size of left pleural effusion. POS: [facility]
[2018-10-20] MEDS ORDERED: Prevnar 13-Val Conj/PF 0.5 ML SYRINGE IM ONE (09:00)
[2018-10-21] MEDS: Acetaminophen 325 MG TAB PO SCH ×4 (00:51→18:29)
[2018-10-21] MEDS: Metoclopramide HCl 10 MG TAB PO SCH ×4 (00:51→18:29)
[2018-10-21] MEDS: Ketorolac Tromethamine 30 MG/ML VIAL IVP SCH (02:36)
[2018-10-21] MEDS: traMADol HCl 50 MG TAB PO PRN ×2 (02:37→18:35)
[2018-10-21 07:00] LABS: #Eosinphils 0.1 thou/uL (0.0-0.7); #Lymphocytes 1.4 thou/uL (1.20-3.40); #Monocytes 1.3 thou/uL (0.11-0.59); #Neutrophils 6.8 thou/uL (1.40-6.50); %Basophils 0.1 % (0.0-1.0); %Eosinophils 1.1 % (0.0-10.0); %Lymphocytes 14.7 % (21.0-51.0); %Monocytes 13.3 % (0.0-10.0); %Neutrophils 70.8 % (42.0-75.0); Hemoglobin 9.8 g/dL (14.0-18.0); Mean Corpuscular HGB CONC 32.6 g/dL (32.0-36.0); Mean Corpuscular Hemoglobin 29.9 pg (27.0-31.0); Mean Corpuscular Volume 91.8 fL (78.0-98.0); Mean Platelet Volume 6.9 fL (7.4-10.4); Platelet Count 325 thou/uL (130-400); RBC Distribution Width 11.9 % (11.5-14.5); Red Blood Cell (RBC) Count 3.26 mill/uL (4.70-6.10); White Blood Cell (WBC) Count 9.6 thou/uL (4.8-10.8)
[2018-10-21] MEDS ORDERED: Ibuprofen 600 MG TAB PO SCH (07:00)
[2018-10-21 07:17] LABS: Anion Gap 12 mmol/L (10-20); BUN (Urea Nitrogen) 13 mg/dL (8.9-20.6); Calc. Creatinine Clearance 145 mL/min (70-130); Calcium 9.3 mg/dL (7.8-10.44); Carbon Dioxide 27 mmol/L (22-29); Chloride 99 mmol/L (98-107); Estimated GFR-MDRD Greater than 90; Glucose 92 mg/dL (70-105); Potassium 3.8 mmol/L (3.5-5.1); Sodium 134 mmol/L (136-145)
[2018-10-21] MEDS: Levalbuterol HCl 0.63 MG/3 ML NEB NEB SCH ×3 (07:43→22:08)
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
[2018-10-21] MEDS: Ibuprofen 600 MG TAB PO SCH ×3 (08:53→21:27)
[2018-10-21] MEDS: Famotidine 20 MG TAB PO SCH ×2 (08:53→21:27)
[2018-10-21] MEDS: Ferrous Sulfate 325 MG TAB PO SCH ×2 (08:53→18:29)
[2018-10-21] MEDS: Ascorbic Acid 500 mg Chewable Tablet PO SCH (08:53)
[2018-10-21] MEDS: Senokot S 8.6-50 MG TAB PO SCH ×2 (09:17→21:27)
[2018-10-21] MEDS: Polyethylene Glycol 3350 17 GM Packet PO SCH (09:17)
--- NOTE | 2018-10-21 09:45 | RAD ---
CHEST 1 VIEW: Date: 10/21/18 HISTORY: Chest tube. COMPARISON: Radiograph prior day. FINDINGS: The left thoracostomy tube is similar. Layering left effusion. Trace left apical pneumothorax. Consol idation left lung base. Rib fractures are no further displaced. IMPRESSION: Trace left apical pneumothorax with small effusion and left pulmonary contusions/atelectasis. POS: [facility]
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
[2018-10-22] MEDS: traMADol HCl 50 MG TAB PO PRN (00:34)
[2018-10-22] MEDS: Metoclopramide HCl 10 MG TAB PO SCH ×2 (00:35→06:08)
[2018-10-22] MEDS: Acetaminophen 325 MG TAB PO SCH ×3 (00:35→11:40)
[2018-10-22] MEDS: Ibuprofen 600 MG TAB PO SCH ×2 (03:00→09:10)
[2018-10-22 05:10] LABS: Platelet Count 406 thou/uL (130-400)
[2018-10-22] MEDS: Levalbuterol HCl 0.63 MG/3 ML NEB NEB SCH (06:21)
--- NOTE | 2018-10-22 08:36 | RAD ---
SINGLE VIEW OF THE CHEST: COMPARISON: 10/21/2018. HISTORY: Chest tube removal. History of hypoxia. FINDINGS: A single view of the chest shows a normal-size cardiomediastinal silhouette. The left chest tube has been removed. No pneumothorax is seen. A linear opacity in the left lung may represent atelectasis . IMPRESSION: 1. Left basilar atelectasis. 2. Status post chest tube removal without evidence of pneumothorax. POS: [facility]
[2018-10-22] MEDS: Ferrous Sulfate 325 MG TAB PO SCH (09:05)
[2018-10-22] MEDS: Scopolamine 1.5 mg/72 hour Patch TOP SCH (09:05)
[2018-10-22] MEDS: Senokot S 8.6-50 MG TAB PO SCH (09:05)
[2018-10-22] MEDS: Polyethylene Glycol 3350 17 GM Packet PO SCH (09:05)
[2018-10-22] MEDS: Famotidine 20 MG TAB PO SCH (09:05)
[2018-10-22] MEDS: Ascorbic Acid 500 mg Chewable Tablet PO SCH (09:05)
[2018-10-22 10:27] LABS: #Eosinphils 0.2 thou/uL (0.0-0.7); #Lymphocytes 1.4 thou/uL (1.20-3.40); #Monocytes 1.6 thou/uL (0.11-0.59); #Neutrophils 8.8 thou/uL (1.40-6.50); %Basophils 0.2 % (0.0-1.0); %Lymphocytes 11.3 % (21.0-51.0); %Monocytes 13.3 % (0.0-10.0); %Neutrophils 73.2 % (42.0-75.0); Mean Corpuscular HGB CONC 33.1 g/dL (32.0-36.0); Mean Corpuscular Hemoglobin 30.8 pg (27.0-31.0); Mean Platelet Volume 6.7 fL (7.4-10.4); Platelet Count 406 thou/uL (130-400); Red Blood Cell (RBC) Count 3.26 mill/uL (4.70-6.10)
[2018-10-22 11:47] VITALS: BP 112/79; TEMP 98.3
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
== END 2018-10-22 12:13 | disposition home or self-care (01) | DRG 958 ==
LOC: ERS 14:34 → SDC 15:34 → ERS 15:35 → CCU 16:12 → SURG A 10-17 14:23
PROVIDERS: ADMIT Thoracic Surgery (Cardiothoracic Vascular Surgery); ATTEND Thoracic Surgery (Cardiothoracic Vascular Surgery)
PROC: 04L43DZ Occlusion of Splenic Artery with Intraluminal Device, Percutaneous Approach (ICD-10-PCS; principal; 2018-10-15)
PROC: B4131ZZ Fluoroscopy of Splenic Arteries using Low Osmolar Contrast (ICD-10-PCS; 2018-10-15)
PROC: 30233N1 Transfusion of Nonautologous Red Blood Cells into Peripheral Vein, Percutaneous Approach (ICD-10-PCS; 2018-10-18)
DX: S36.032A Major laceration of spleen, initial encounter (principal); S22.42XA Multiple fractures of ribs, left side, initial encounter for closed fracture; S27.0XXA Traumatic pneumothorax, initial encounter; D62 Acute posthemorrhagic anemia; E87.6 Hypokalemia; E83.42 Hypomagnesemia; E83.39 Other disorders of phosphorus metabolism; D47.3 Essential (hemorrhagic) thrombocythemia; R09.02 Hypoxemia; R00.0 Tachycardia, unspecified; W20.8XXA Other cause of strike by thrown, projected or falling object, initial encounter; Y92.65 Oil rig as the place of occurrence of the external cause; Y99.0 Civilian activity done for income or pay; Z23 Encounter for immunization
CPT/HCPCS: 36415; 36416; 36430; 37242; 71045; 71260; 74177; 76942; 80048; 80053; 83605; 83735; 84100; 85007; 85014; 85018; 85025; 85027; 85049; 85610; 85730; 86850; 86900; 86901; 90471; 90648; 90670; 90732; 90733; 94640; 96374; 96375; 99406; C1725; C1769; G0009; G0390; J0131; J0690; J1644; J1885; J2001; J2270; J2405; J2550; J2765; J3010; J3475; J3480; J7050; J7614; J7620; J8597; P9016; Q9966; Q9967; S0028

== ENCOUNTER 2018-11-06 09:53 | Outpatient (CLI) | payer OTHER ==
[2018-11-06 10:45] LABS: #Basophils 0.1 thou/uL (0.0-0.2); #Eosinphils 0.1 thou/uL (0.0-0.7); #Lymphocytes 2.2 thou/uL (1.20-3.40); #Monocytes 0.6 thou/uL (0.11-0.59); #Neutrophils 3.7 thou/uL (1.40-6.50); %Eosinophils 1.2 % (0.0-10.0); %Lymphocytes 33.2 % (21.0-51.0); %Monocytes 8.6 % (0.0-10.0); Hemoglobin 11.8 g/dL (14.0-18.0); Mean Corpuscular HGB CONC 32.5 g/dL (32.0-36.0); Mean Corpuscular Volume 89.3 fL (78.0-98.0); Mean Platelet Volume 6.1 fL (7.4-10.4); Platelet Count 725 thou/uL (130-400); RBC Distribution Width 12.5 % (11.5-14.5); Red Blood Cell (RBC) Count 4.06 mill/uL (4.70-6.10); White Blood Cell (WBC) Count 6.6 thou/uL (4.8-10.8)
--- NOTE | 2018-11-06 11:33 | RAD ---
PA AND LATERAL CHEST: Indication: History of multiple left sided rib fractures. Comparison: 10-22-18 FINDINGS: There has been some improvement in aeration of the left lower lobe. Small left pleural effusion remai ns. Endovascular clips are again seen within the left upper quadrant of the abdomen. Multiple left si ded rib fractures are again noted. The right lung is clear. Heart size is normal. IMPRESSION: 1. Persistent small left pleural effusion with slightly improved improvement in the subsegmental atel ectasis in the left lower lobe when compared to the prior dated 10-22-18. 2. Stable left sided rib fractures. POS: [facility]
== END 2018-11-06 09:54 | disposition home or self-care (01) ==
LOC: RAD 09:53
PROVIDERS: ATTEND Physician Assistant Medical
DX: S22.42XD Multiple fractures of ribs, left side, subsequent encounter for fracture with routine healing (principal); J98.11 Atelectasis; J90 Pleural effusion, not elsewhere classified
CPT/HCPCS: 36415; 71046; 85025